=== PATIENT | female | born 1985 ===

== ENCOUNTER 2017-05-23 20:55 | Inpatient (IN) | payer BC, OTHER ==
[~2017-05-23] VITALS: Ht 170.2 cm; Wt 78.2 kg
[2017-05-23] MEDS ORDERED: LACTATED RINGER'S 1000ML 1,000 ML IV SCH (21:05)
[2017-05-23] MEDS ORDERED: PENICILLIN G POTASSIUM IV 6 MU in DEXTROSE 5% 250ML 250 ML IV ONE (21:15)
[2017-05-23] MEDS ORDERED: PENICILLIN G POTASSIUM IV 3 MU in DEXTROSE 5% 100ML 100 ML IV PRN (21:15)
[2017-05-23] MEDS ORDERED: OXYTOCIN 30 UNITS/500ML NSS IV ONE (21:26)
[2017-05-23] MEDS ORDERED: METHYLERGONOVINE MALEATE 0.2 MG/ML AMP ONE (21:47)
[2017-05-23] MEDS ORDERED: BENZOCAINE 20% AER SPR 82.5 GM CAN EXT PRN (22:30)
[2017-05-23] MEDS ORDERED: HYDROCORTISONE ACETATE 25 MG SUPP PR PRN (22:30)
[2017-05-23] MEDS ORDERED: ACETAMINOPHEN/CODEINE 300/30MG TAB PO PRN ×2 (22:30)
[2017-05-23] MEDS ORDERED: METHYLERGONOVINE MALEATE 0.2 MG/ML AMP IM ONE (22:30)
[2017-05-23] MEDS ORDERED: OXYCODONE/ACETAMINOPHEN 5-325 TAB PO PRN (22:30)
[2017-05-23] MEDS ORDERED: LANOLIN OINT EXT PRN ×2 (22:30)
[2017-05-23] MEDS ORDERED: OXYTOCIN 30 UNITS/500ML NSS IV PRN (22:30)
[2017-05-23] MEDS ORDERED: SUPERCREAM 0.870 % 15GM JAR EXT PRN (22:30)
[2017-05-23] MEDS ORDERED: MISOPROSTOL 200 MCG TAB PR ONE (22:30)
--- NOTE | 2017-05-23 22:41 | DELIVERY SUMMARY ---
DATE OF OPERATION: 05/23/2017 The patient delivered a live infant male in left occiput anterior presentation. There was no nuchal cord. Infant was delivered, placed on mother's abdomen. Cord was clamped and cut after 1 minute. Cord gases obtained. Cord blood was obtained as well. Placenta spontaneously delivered, appeared grossly normal with 3-vessel cord. Inspection of the perineum shows a right sulcus tear with a second-degree midline laceration. These were repaired in layers with 3-0 Vicryl. There was good hemostasis after repair. Rectal exam post repair showed good sphincter tone. No sutures were palpated in the rectum. All instruments were removed from the vagina and accounted for x2 including sponges and needles as well as retractors. Mother and baby were hemodynamically stable. 's weight is pending. Apgars 8 and 9. I attest to the content of the Intraoperative Record and any orders documented therein. Any exception s are noted below.
[2017-05-23 22:56] VITALS: Ht 170.2 cm; Wt 78.2 kg
[2017-05-23] MEDS ORDERED: PRENTAB26 PO (23:01)
[2017-05-23 23:08] LABS: HEMATOCRIT 39.5 % (37-47); MEAN CELL VOLUME 86.4 fL (80-100); MEAN CORPUSCULAR HEMOGLOBIN 29.5 pg (25-34); MEAN CORPUSCULAR HGB CONC 34.2 g/dl (32-36); MEAN PLATELET VOLUME 9.4 fL (7.4-10.4); PLATELET COUNT 151 K/uL (130-400); RED BLOOD COUNT 4.57 M/uL (4.2-5.4)
[2017-05-23] MEDS ORDERED: OXYTOCIN INJ 20 UNITS in LACTATED RINGER'S 1000ML 1,000 ML IV SCH (23:30)
[2017-05-24] VITALS (7 sets, daily range): BP systolic 97–113; BP diastolic 54–68; PULSE 78–99; TEMP 36.6–37.1; O2SAT 95–97
[2017-05-24] MEDS ORDERED: ACETAMINOPHEN 325 MG TAB PO PRN (01:15)
[2017-05-24] MEDS ORDERED: MISOPROSTOL 200 MCG TAB ONE (04:25)
[2017-05-24] MEDS: IBUPROFEN 600 MG TAB PO PRN ×2 (06:26→11:36)
--- NOTE | 2017-05-24 07:02 | HISTORY & PHYSICAL EXAMINATION ---
DATE OF ADMISSION: 05/23/2017 HISTORY OF PRESENT ILLNESS: The patient is a 32-year-old , due date 05/28/2017, making her 39 weeks and 2 days, who presented to labor and delivery in labor. On arrival to labor and delivery, she had no shortness of breath, no chills, no fever. She was examined and found to be 9 cm dilated with bulging membranes. There was no rupture of membranes. There was, however, bloody show. The patient's has been unremarkable. LABORATORY DATA: Blood type O positive, antibody negative, rubella immune, GBS positive. PAST MEDICAL HISTORY: History of exercise-induced asthma, depression and abnormal Pap. PAST SURGICAL HISTORY: Colposcopy and tonsillectomy at age 10. SOCIAL HISTORY: The patient denies tobacco, drug or alcohol use. FAMILY HISTORY: Noncontributory. ALLERGIES: No known drug allergies. PHYSICAL EXAMINATION: GENERAL: Well-developed, well-nourished white female in labor discomfort. HEART: S1, S2, regular rhythm and rate. LUNGS: Clear to auscultation bilaterally. ABDOMEN: Gravid. heart rate is category 1. PELVIC: 9 cm, 100% effaced. Bedside ultrasound shows cephalic presentation. EXTREMITIES: No cyanosis, clubbing or edema. ASSESSMENT AND PLAN: A 32-year-old , at 39 weeks, in labor. Plan is to admit the patient. The patient is admitted. After IV was started, the patient was found to be fully dilated and feels the need to push. The patient can no longer refrain from pushing. Decision is, therefore, made to rupture the patient's membranes so she can push. She is in severe pain. Has no pain medicine on board. Despite the patient's GBS status, decision is made to rupture her membranes and let her push because she is in severe pain. I have told the patient the usual recommendation is to wait and start GBS prophylaxis. The patient understands that she might not be able to get penicillin antibiotic prophylaxis and is willing to proceed. We have, therefore, ruptured her membranes. The patient quickly went on to push and delivered a live infant male. For details of delivery, see the delivery record. Pediatrics will be notified of GBS status. EDDIE
[2017-05-24] MEDS: FERROUS SULFATE 325 MG TAB PO SCH (08:00)
--- NOTE | 2017-05-24 08:13 | OB/GYN Progress Note ---
FOREST FIRE PREVENTION MANAGER Progress Note Date of Service: May 24, 2017. Patient is seen and examined. She feels well, no complaints. Ambulating without dizziness Voiding without difficulty Tolerating regular diet with out N&V Bleeding is minimal No fever/ chills/ CP/ SOB/ N&V/ Leg pain Breast feeding without problems Date Time Temp Pulse Resp B/P (MAP) Pulse Ox O2 Delivery O2 Flow Rate FiO2 05/24/17 07:14 36.8 86 20 109/68 (82) 96 Room Air 05/24/17 04:20 36.6 18 113/66 (82) Room Air 05/24/17 01:25 36.9 92 18 106/66 (79) Room Air 05/24/17 01:25 Room Air Last 24 Hours Test 05/23/17 22:58 White Blood Count 17.00 K/uL Red Blood Count 4.57 M/uL Hemoglobin 13.5 g/dL Hematocrit 39.5 % Mean Corpuscular Volume 86.4 fL Mean Corpuscular Hemoglobin 29.5 pg Mean Corpuscular Hemoglobin Concent 34.2 g/dl RDW Standard Deviation 42.5 fL RDW Coefficient of Variation 13.4 % Platelet Count 151 K/uL Mean Platelet Volume 9.4 fL PE: General: Alert, orientedx3, NAD Abd: soft, NT, fundus firm, below Umbilicus Perineum intact, Lochia rubra minimal Ext; NT, no edema AP: 32 yo s/p , ppd# 1 VSS Afebrile doing well Continue routine care All questions were answered D/C home tomorrow
[2017-05-24] MEDS: DOCUSATE SODIUM 100 MG CAP PO SCH ×2 (08:19→20:10)
[2017-05-24] MEDS ORDERED: BISACODYL 5 MG TABEC PO SCH (20:00)
[2017-05-25] MEDS: IBUPROFEN 600 MG TAB PO PRN ×2 (06:22→19:29)
[2017-05-25] MEDS ORDERED: BISACODYL 10 MG SUPP PR PRN (07:00)
[2017-05-25 07:15] VITALS: BP 91/48; PULSE 85; TEMP 36.8; O2SAT 96
[2017-05-25] MEDS: DOCUSATE SODIUM 100 MG CAP PO SCH ×2 (08:51→19:29)
[2017-05-25] MEDS: FERROUS SULFATE 325 MG TAB PO SCH (08:51)
--- NOTE | 2017-05-25 09:41 | OB/GYN Progress Note ---
PRODUCT ASSEMBLER Progress Note Date of Service May 25, 2017. Subjective conversation w/ patient, physical exam Ambulation: ambulating normally Voiding: no voiding problems Passing Gas: Yes Diet Tolerance: Regular Diet Lochia: Moderate Feeding Type: Breast Feeding Review of Systems Constitutional: + fever, + chills, + sweats, + weight loss, + weakness, + fatigue, + problem reported Respiratory: + cough, + sputum, + wheezing, + shortness of breath, + dyspnea on exertion, + dyspnea at rest, + hemoptysis, + problem reported Cardiac: + chest pain, + orthopnea, + PND, + edema, + claudication, + palpitations, + problem reported Breast: + see HPI, + breast lump, + change in shape, + nipple discharge, + breast pain, + problem reported Abdomen: + pain, + nausea, + vomiting, + diarrhea, + constipation, + GI bleeding, + problem reported Female : + see HPI, + dysuria, + urinary frequency, + hematuria, + incontinence, + abnormal vaginal bleeding, + vaginal discharge, + problem reported Objective Vital Signs Date Time Temp Pulse Resp B/P (MAP) Pulse Ox O2 Delivery O2 Flow Rate FiO2 05/25/17 07:15 36.8 85 18 91/48 (62) 96 Room Air 05/24/17 23:55 36.8 78 20 97/57 (70) 97 Room Air 05/24/17 23:55 97 Room Air 05/24/17 19:55 37.1 87 16 100/54 (69) 95 Room Air 05/24/17 15:00 36.6 99 20 111/66 (81) Room Air 05/24/17 15:00 Room Air 05/24/17 11:10 36.7 84 20 100/57 (71) 96 Room Air Physical Exam General Appearance: WELL-APPEARING, WD/WN, NO APPARENT DISTRESS Respiratory/Chest: chest non-tender, lungs clear, normal breath sounds Cardiovascular: regular rate, rhythm, no edema, no gallop, no JVD Abdomen: normal bowel sounds, non tender, soft Fundus: Firm Extremities: normal range of motion, non-tender, normal inspection Assessment and Plan Day Number: 2 Continue Routine Care: VD day 2 pt doing well Baby is GBS disch home tomorrow
[2017-05-25] MEDS ORDERED: MTR600X PO (09:42)
--- NOTE | 2017-05-25 09:43 | Discharge Instructions ---
Discharge Instructions Date of Service May 25, 2017. Admission Reason for Admission: Check Labor Discharge Discharge Diagnosis / Problem: Discharge Goals Goal(s): Routine recovery after delivery Activity Recommendations Activity Limitations: as noted below ACTIVITY RECOMMENDATIONS: * Gradual return to full activity over the next 2-3 weeks. * No lifting - nothing heavier than baby over the next 2-3 weeks. * Do not engage in vigorous exercise, sexual activity or sports until cleared by your physician. * Do not drive or operate any motorized equipment until cleared by your physician. * You may shower/bathe daily. BREAST CARE: If you are not breast feeding: * Wear a supportive bra 24 hours a day for one to two weeks. * Avoid stimulating your breasts and nipples as much as possible during the first few weeks after delivery. * When taking a shower, have the warm water hit your back, not breasts. * When your breasts feel full, apply ice packs. Usually three to four times a day helps ease the discomfort. * Take a mild pain medication (Tylenol/Motrin) when you are uncomfortable. If breast feeding: * Use breast milk to lubricate nipples. [place] cream may be used for sore nipples. You do not need to remove cream prior to breast feeding. If using a different brand of cream, check the label for directions regarding removal of cream prior to nursing. * Wear a supportive bra. * If having problems with breasts or breast feeding, call a employment consultant or your health care provider. EPISIOTOMY CARE: After delivery, if you have an episiotomy (stitches), the following steps will ease discomfort and aid healing. * For the first 24 hours after delivery, place ice packs next to your episiotomy to help reduce swelling. * After the first 24 hour-period, sitz baths, either portable or in the tub, are suggested. A shower with a shower arm sprayed over the episiotomy may be comforting. * Melanie care should be done after each voiding and bowel movement. Squirt warm water from a plastic bottle over the perineum (region of the body between the anus and urinary opening) and pat dry. * Use Dermoplast to ease discomfort. Shake container. [place] directly over the episiotomy. * Place a Tucks on a clean sanitary pad next to your episiotomy. OVER THE COUNTER MEDICATION: * For discomfort or pain, you may use Acetaminophen (Tylenol), Ibuprofen (Advil ), or Naproxen (Aleve) following the package directions. * For constipation you may use Colace following the package directions. SPECIAL CARE INSTRUCTIONS: When you are discharged from the hospital, it is important for you to follow the instructions listed below: * During the first week at home, you should be able to care for yourself and your baby. In addition, the usual light household activities are encouraged. * Limit your activities to the way you feel. Do not try to clean the house or move furniture. Be sensible. * If you actively engage in sports and have done so up until the time of your delivery, you may resume these activities as soon as you feel able. This may take up to one month or even longer. Use good judgment. * Continue to take your vitamins for at least six weeks after the of your baby. * Your diet need not be limited unless you were on a special diet before your delivery. Breast-feeding mothers need around 2500 calories per day and at least 64-80 ounces of fluid per day (8 to 10 glasses). * You should eat foods from the four major food groups. Crash diets or fad diets are to be avoided. Eating lean meats, fresh fruits and vegetables, low-fat dairy products, high fiber foods and a regular exercise program, will help you get back to your pre- weight without putting your health at risk. * Constipation is sometimes a problem after delivery. Take a mild laxative as needed. If breast feeding, Milk of Magnesia is acceptable to use. You may use a suppository or Fleets enema if no episiotomy. * A daily shower or tub bath is suggested. Be sure to thoroughly and gently dry the perineum. * A bloody vaginal discharge will usually continue until around four weeks post . A small amount of bleeding may continue for as long as six weeks. Vaginal discharge changes from the bright red bleeding after delivery to pink then brownish and finally yellowish-pink before becoming white and disappearing. * Bleeding may increase with activity. Your first period may come in 4-8 weeks. If you are breast feeding, your period may be delayed even longer. * [place] (sex) can begin whenever both you and your partner feel comfortable and do not have any form of genital infection. It is recommended that you wait until after your return appointment and discuss with your physician. If you have questions, please talk to your health care practitioner. A condom should be used to prevent infection and . * Foreplay, gentle intercourse and lubrication is very important the first several times to prevent pain. A water-based lubricant such as K-Y jelly or Astroglide may be used. * Tampons may be used six weeks after delivery. * Douching should be avoided for 6 weeks after delivery. * If you have RH negative blood and your baby is RH positive, you will receive RHOGAM by injection prior to discharge. The nurse will give you a card to keep with you that has the date and place that you received RHOGAM after delivery. * During your care, you had a Rubella screen done to check for the presence of rubella antibodies in your blood. If your test was negative, you will receive a Rubella vaccine prior to discharge. This vaccine may cause a fever, soreness at the injection site and flu-like symptoms. If these symptoms persist, notify your health care practitioner. is not advised for three months after a Rubella vaccine. There is a higher chance of having a baby with defects if conceived within three months of getting the vaccine. * If you were discharged 24 hours from delivery or before 48 hours: Visiting nurses will come to your home 48 hours after discharge to assess you and your baby. The visiting nurse will meet with you while you are in the hospital to arrange a time and get directions to your home. * Verbalizes understanding of car seat law as reviewed with patient nursing. * Car Seat hand-out given and reviewed with patient by nursing. * Shaken baby information reviewed with patient by nursing. Call you doctor if: * Heavy bleeding (saturating several pads an hour) or passing clots the size of your fist. * A fever >101 degrees F (38.3 degrees C) on two occasions four hours apart and/or chills. * Unusual pain in the pelvic or vaginal areas. * "Baby Blues" lasting longer than two weeks. If you have any questions or concerns, call your health care practitioner at . FOLLOW-UP VISIT: * Please call the office at to schedule a 6 week examination. It is important you keep this appointment. * It is important for you to make arrangements for either yearly or twice yearly check-ups thereafter. . Current Hospital Diet Patient's current hospital diet: Regular OB Diet Discharge Diet Recommended Diet: Regular Diet Pending Studies Studies pending at discharge: no Medical Emergencies . Who to Call and When: Medical Emergencies: If at any time you feel your situation is an emergency, please call 911 immediately. . Non-Emergent Contact Non-Emergency issues call your: Specialist . . "Provider Documentation" section prepared by Rashid Strickland. . VTE Core Measure Inpt VTE Proph given/why not?: Treatment not indicated
--- NOTE | 2017-05-25 14:45 | Progress Note ---
Progress Note Date of Service May 25, 2017. Progress Note OB/NOTE Informed by nurse, long term care social worker recommends disch because pt's insurance will not pay for her staying today Plan disch to [facility] baby will continue to stay in nursery
[2017-05-25] MEDS ORDERED: MEASLES, MUMPS & RUBELLA VIRUS VIAL SQ. ONE (15:30)
[2017-05-25 16:00] VITALS: BP 97/56; PULSE 79; TEMP 36.9; O2SAT 98
== END 2017-05-25 19:40 | disposition home or self-care (01) | DRG 775 ==
LOC: C.LD 20:55 → C.OBG 05-24 02:32
PROVIDERS: ADMIT Obstetrics & Gynecology; ATTEND Obstetrics & Gynecology
PROC: 0KQM0ZZ Repair Perineum Muscle, Open Approach (ICD-10-PCS; principal; 2017-05-23)
PROC: 10E0XZZ Delivery of Products of Conception, External Approach (ICD-10-PCS; principal; 2017-05-23)
DX: O62.3 Precipitate labor (principal); O99.824 Streptococcus B carrier state complicating childbirth; O70.1 Second degree perineal laceration during delivery; Z37.0 Single live birth; Z3A.39 39 weeks gestation of pregnancy